=== PATIENT | male | born 1955 | race Caucasian/White ===

== ENCOUNTER 2025-06-25 07:49 | Outpatient (OUT) | payer MEDICARE, OTHER, SELFPAY ==
--- OUTSIDE RECORDS SUMMARY | 2025-06-25 07:58 | XMS_ITS | Clinical Summary ---
Author Organization [facility] Address [address] [place] [address] Phone Care Team Providers Care Development Spec Name Role Phone Fortino Grigsby DO Primary Care Provider [phone] Social History Tobacco UseTypesPacks/DayYears UsedDateSmoking Tobacco: Never AssessedSex and Gender InformationValueDate RecordedSex Assigned at BirthNot on fileLegal Sex Male07/18/2022 8:02 PM ESTGender IdentityNot on fileSexual OrientationNot on file Last Filed Vital Signs Vital SignReadingTime TakenCommentsBlood Jifukvpx477/8805 2:23 PM EDT Xwoba0099/18/2022 1:17 PM EDTTemperature--Respiratory Rate--Oxygen Saturation-- Inhaled Oxygen Concentration--Cqoavr06.8 kg (209 lb)01/07/2022 1:17 PM EDTHeight 177.8 cm (5' 10 )01/07/2022 1:17 PM EDTBody Mass Index29.9901/07/2022 1:17 PM EDT Plan of Treatment Not on file Care Teams Team MemberRelationshipSpecialtyStart DateEnd Date Fortino Grigsby DO [address] [place] [address] PCP - General01/07/22
--- OUTSIDE RECORDS SUMMARY | 2025-06-25 07:58 | XMS_ITS | Clinical Summary ---
Author Organization [facility] Address [address] [place] [address] Care Team Providers Care Window Shade Cutter Name Role Phone Fortino Grigsby DO Primary Care Provider [phone] Allergies Active AllergyReactionsCriticalityNoted YcikHngbrciyHlmgclmrOulvtcp98/31/2023 Medications MedicationSigDispense QuantityRefillsLast FilledStart DateEnd DateStatus Multiple Vitamin (multivitamin) tablet Take 1 tablet by mouth DailyActive montelukast (Singulair) 10 MG tablet Indications:Chronic coughTAKE 1 TABLET BY MOUTH AT BEDTIME 30 tablet 4Active cetirizine (ZyrTEC) 10 MG tablet Indications:Chronic coughTAKE 1 TABLET BY MOUTH DAILY NEEDED 30 tablet 4Active bisoprolol-hydroCHLOROthiazide (Ziac) 5-6.25 MG tablet Indications:Essential hypertensionTake 1 tablet by mouth Daily 90 tablet 5Active simvastatin (Zocor) 40 MG tablet Indications:Hyperlipidemia, unspecified hyperlipidemia typeTake 1 tablet (40 mg) by mouth at bedtime 90 tablet 5Active triamcinolone (Kenalog) 0.1 % cream Indications:RashApply topically 2 (two) times a day as needed for rash 30 g 5Active Active Problems ProblemNoted DateDiagnosed DateDisc disease, degenerative, lumbar or lumbosacral 02/15/2024isplacement of lumbar intervertebral disc with radiculopathy 02/15/2024Intractable back pain02/15/2024ight foot drop02/15/2024Sciatica 02/15/2024Screening for colorectal afqbhg8302/15/2024Spinal xdgqwged31/25/2024 Essential lfkqdweqproh36/31/9484Ixoscxqsllafho04/31/2023aroxysmal atrial cszikigkdjkc26/31/2023 Immunizations ImmunizationAdministration DatesNext DueModerna SARS-CoV-2 Qdiepphiawh33/13/2021 Pfizer [place] Cap SARS-CoV-2 Krppeofwuxq81/18/6724TKVL-COD-6 (COVID-19) vaccine, mRNA, spike protein, LNP, PF, mohan-sucrose, 30 mcg/0.3 mL07/18/2023 Family History Medical HistoryRelationNameCommentsNo Known ProblemsBrother2 brothers, healthyNo Known ProblemsDaughter2 daughters, healthyHeart diseaseFatherHypertensionFather HypertensionMotherBreast cancerSister 1Colon cancerSister 2No Known ProblemsSon RelationNameStatusCommentsBrotherDaughterAliveFatherDeceasedMotherDeceasedSister 1Sister 2AliveSonAlive Social History Tobacco UseTypesPacks/DayYears UsedDateSmoking Tobacco: NeverPassive Smoke Exposure: NeverSmokeless Tobacco: Never Tobacco Cessation:Counseling Given: Yes Alcohol UseStandard Drinks/WeekCommentsYes0 (1 standard drink = 0.6 oz pure alcohol)PHQ-2AnswerDate RecordedPatient Health Questionnaire-2 Laeqr619 Sex and Gender InformationValueDate RecordedSex Assigned at BirthNot on file Legal BheJpfq8211/04/2022 7:02 PM EDTGender IdentityNot on fileSexual Orientation Not on file Last Filed Vital Signs Vital SignReadingTime TakenCommentsBlood Qruahosc930/72002/05/2025 8:59 AM EDT Ylmol029702/05/2025 8:59 AM KEVJldhxgcylxq12.6 ??C (97.9 ??F)02/05/2025 8:59 AM EDTRespiratory Rate--Oxygen Itrqsefufh34%02/05/2025 8:59 AM EDTInhaled Oxygen Concentration--Kakucl64.3 kg (210 lb)02/05/2025 8:59 AM CVWKfyqfo743.8 cm (5' 10 )02/05/2025 8:59 AM EDTBody Mass Index30.13002/05/2025 8:59 AM EDT Plan of Treatment DateTypeDepartmentCare Team (Latest Contact Info)Gxvrilybakw16/04/2025 8:30 AM ESTOffice Visit [facility] [address] [place] [address] Luh Murcia, FINANCE CONSULTANT-EXPERIMENTAL [employer] F[employer]ICATOR [address] [place] [address] Health MaintenanceDue DateLast DoneCommentsCT Xgmxuaaiiego13/08/1957FIT-DNA 1956FIT1955FOBT1955 6971Lybkkqtdlrwwh26/08/1957DTaP/Tdap/Td Vaccines (1 - Tdap)1963Pneumococcal Vaccine: 65+ Years (1 of 1 - PCV) 2006COVID-19 Vaccine ( season)5109/17/2022, 02/07/2022, 07/05/2021, Additional history existsInfluenza Vaccine (#1)5Colonoscopy , 08/01/2019Colorectal Cancer Wgkwtlfls72/08/2033HIB VaccinesAged OutNo longer eligible based on patient's age to complete this topic HPV VaccinesAged OutNo longer eligible based on patient's age to complete this topicHepatitis A VaccinesAged OutNo longer eligible based on patient's age to complete this topicHepatitis B VaccinesAged OutNo longer eligible based on patient's age to complete this topicIPV VaccinesAged OutNo longer eligible based on patient's age to complete this topicMeningococcal B VaccineAged OutNo longer eligible based on patient's age to complete this topicMeningococcal VaccineAged OutNo longer eligible based on patient's age to complete this topicRotavirus VaccinesAged OutNo longer eligible based on patient's age to complete this topic Procedures Procedure NamePriorityDate/TimeAssociated DiagnosisCommentsCOLONOSCOPY WCUGNKEEIYWcrazsc56/08/2023 1:00 PM EDTfrom Last 3 Months or Most Recently Relevant to Health Maintenance Results * COLONOSCOPY DIAGNOSTIC (01/28/2023 1:00 PM EDT)Anatomical RegionLaterality ModalityRadiographic Imaging Narrative Authorizing ProviderResult TypeResult StatusParolando Grigsby DOIMG XR PROCEDURES Final Result from Last 3 Months or Most Recently Relevant to Health Maintenance Insurance Care Teams Team MemberRelationshipSpecialtyStart DateEnd Date Fortino Grigsby, [address] [place] [address] PCP - GeneralFamily Medicine01/07/23
--- NOTE | 2025-06-25 07:59 | ECG_ITS ---
[facility] Test Date: 2025-06-25 Pat Name: DONAL YEE Department: Room: - Gender: Male Water Purifier: : 1955 Requested By: AJIT PUENTE Order Number: [id number] Reading MD: ELMO QUESADA M.D. Measurements Intervals [place] Rate: 60 P: 38 [place]: 168 QRS: 17 QRSD: 104 T: 21 QT: 384 QTc: 384 Interpretive Statements SINUS RHYTHM Normal ECG No previous ECG available for comparison Electronically Signed On 06-25-2025 12:47:16 EST by ELMO QUESADA M.D.
--- NOTE | 2025-06-25 08:48 | PM.PRESUREVA ---
History of Present Illness History of Present Illness Chief complaint: left hydrocele Narrative: Patient presents for presurgical testing. The patient reports a history of a left sided hydrocele that has been ongoing and worsening for the past 6 months. The patient denies any urinary complaints. No dysuria, hematuria, urinary retention, fever, nausea, vomiting, or any other complaints. Review of Systems ROS Narrative REVIEW OF SYSTEMS: Negative except as stated in HPI, ten or more systems reviewed. Constitutional: No fever, chills, weakness ENT: No sore throat or epistaxis Cardiovascular: No edema, chest pain, palpitations, or activity intolerance Respiratory: No shortness of breath, cough, or wheezing Musculoskeletal: No joint pain or swelling Gastrointestinal: No abdominal pain, constipation, diarrhea, or vomiting Genitourinary: No dysuria or hematuria Neurological: No numbness, tingling, weakness, or headache Psychiatric: No mood changes PFSH PFS Medical History (Updated 06/25/25 @ 08:30 by Kath Proctor NP) Shoulder pain ?M25.519 - Pain in unspecified shoulder (ICD-10) Arthritis ?M19.90 - Unspecified osteoarthritis, unspecified site (ICD-10) COVID-19 ?U07.1 - COVID-19 (ICD-10) Headache ?R51.9 - Headache, unspecified (ICD-10) Hydrocele ?N43.3 - Hydrocele, unspecified (ICD-10) High cholesterol ?E78.00 - Pure hypercholesterolemia, unspecified (ICD-10) Hypertension ?I10 - Essential (primary) hypertension (ICD-10) Atrial fibrillation ?I48.91 - Unspecified atrial fibrillation (ICD-10) Surgical History (Updated 06/25/25 @ 08:30 by Kath Proctor NP) History of lumbosacral spine surgery ?Z98.890 - Other specified postprocedural states (ICD-10) History of colonoscopy ?Z98.890 - Other specified postprocedural states (ICD-10) Family History (Updated 06/25/25 @ 08:30 by Kath Proctor NP) Other Congestive heart failure Family history of breast cancer Family history of heart disease Family history of hypertension Rectal cancer Social History (Updated 06/25/25 @ 08:23 by Kath Proctor NP) Within the past year, how often did you have a drink containing alcohol: never Score interpretation: A score less than 4 is consistent with normal alcohol consumption. Smoking status: Never smoker Non-prescribed substance use: denies use Previous occupational history: Retired, [employer] Highest level of school completed/degree received: high school graduate Meds Home Medications and Allergies Home Medications ?Medication ?Instructions ?Recorded ?Confirmed ?Type bisoprolol 5 1 tab PO DAILY 06/25/25 06/25/25 History mg-hydrochlorothiazide 6.25 mg tablet simvastatin 40 mg tablet 40 mg PO QPM 06/25/25 06/25/25 History Allergies Allergy/AdvReac Type Severity Reaction Status Date / Time No Known Drug Allergies Allergy Verified 06/25/25 08:21 Exam Narrative Exam Narrative: Constitutional: Awake, alert, comfortable, well-appearing, nontoxic, interactive, vital signs as charted Head: Normocephalic, atraumatic Neck: Supple, normal appearance, normal range of motion, no meningeal signs, no lymphadenopathy Respiratory: No respiratory distress, breath sounds clear Cardiovascular: Regular rate and rhythm, strong and regular heart tones Abdomen: Nontender, normal bowel sounds, soft, no CVA tenderness Musculoskeletal: Normal gait, no swelling or edema Skin: No rashes or induration, no lesions, only visible skin inspected Neuro: No neurological deficits, normal sensation Psychiatric: Oriented ?3, normal affect Assessment and Plan Assessment and Plan (1) Hydrocele: Plan Left hydrocelectomy scheduled with Dr. Daugherty July 10, 2025.
[2025-06-25 09:04] LABS: Anion Gap 12.2; Blood Urea Nitrogen 16.0 mg/dL (7.0-18.0); Calcium 9.2 mg/dL (8.5-10.1); Carbon Dioxide 28.8 mmol/L (21.0-32.0); Chloride 101 mmol/L (98-107); Estimated GFR (African America >60 (>=60 mL/min/1.73m^2); Estimated GFR (Non-African Ame 53 (>=60 mL/min/1.73m^2); Glucose 109 mg/dL (74-106); Potassium 4.0 mmol/L (3.5-5.1); Sodium 138 mmol/L (136-145)
[2025-06-25 09:12] LABS: Hematocrit 51.8 % (42.0-54.0); Hemoglobin 17.5 g/dL (14.0-18.0); Immature Granulocytes Abs Auto 0.05 10^3/uL (0.00-0.03); Immature Granulocytes Pct Auto 0.6 % (0.0-0.5); Lymphocytes Absolute Auto 2.6 10^3/uL (1.2-3.8); Mean Corpuscular HGB Conc 33.8 g/dL (29.9-35.2); Mean Corpuscular Hemoglobin 31.3 pg (25.9-34.0); Mean Corpuscular Volume 92.7 fL (80.0-94.0); Platelet Count 318 10^3/uL (150-450); Red Blood Count 5.59 10^6/uL (4.70-6.10); White Blood Count 8.6 10^3/uL (4.0-11.0)
[2025-06-25 09:19] LABS: INR 1.01; Partial Thromboplastin Time 26.8 sec (22.3-36.2); Prothrombin Time 10.7 sec (9.0-11.6)
== END 2025-06-25 07:50 | disposition home or self-care (01) ==
LOC: PST 07:55
PROVIDERS: PCP Family Medicine; Visit Provider Urology
DX: Z01.810 Encounter for preprocedural cardiovascular examination (principal); Z01.812 Encounter for preprocedural laboratory examination; Z01.818 Encounter for other preprocedural examination; N43.3 Hydrocele, unspecified
CPT/HCPCS: 80048; 85025; 85610; 85730; 93005; G0463

== ENCOUNTER 2025-07-10 13:04 | Day surgery (SDC) | payer OTHER, MEDICARE, SELFPAY ==
[2025-06-25 08:41] VITALS: BP 135/88; PULSE 69; TEMP 36.4; O2SAT 95; BMI 29.4
[2025-07-10] VITALS (12 sets, daily range): BP systolic 143–180; BP diastolic 86–106; PULSE 65–82; TEMP 36.3–36.8; O2SAT 90–98; BMI 29.3
[2025-07-10] MEDS: CEFAZOLIN SODIUM 2 GM/50 ML D5W PREMIX IV (15:24)
[2025-07-10] MEDS: MINERAL OIL LIGHT STERILE 10 ML VIAL TOPICAL (16:01)
[2025-07-10] MEDS: BACITRACIN OINTMENT 28.4 GM TUBE 1 APPLIC TOPICAL (16:47)
--- NOTE | 2025-07-10 16:50 | P.URON_ITS ---
Urology Surgery Operative Note Operative Note Procedure Date: 07/10/25 Time Out Performed: yes Pre-op Diagnosis: Large left hydrocele Post-op Diagnosis: same as pre-op Procedures performed: 1. Left hydrocelectomy Anesthesia: General-LMA Primary Surgeon: Cheko Daugherty Complications: None Estimated blood loss (mL): 5 Findings: Large left hydrocele crossing the midline Specimens: Left hydrocele sac Drains: None Indications for Procedures: This gentleman has a large left hydrocele which is bothersome for him. He is desirous for hydrocelectomy. He has signed an informed consent after risks were explained. Detailed description of Procedure: The patient was brought to the operating room and placed on the operating room table in the supine position. SCDs were placed on his lower extremities and turned on and functioning during the entire case. Timeout was done by all parties in the room. We all agreed upon the patient's identification and the planned procedures for this patient. General anesthesia was then administered via LMA. The genitalia were sterilely prepped and draped in the usual fashion. I started by making a left hemiscrotal transverse incision with the 15 blade scalpel. Sharp dissection was carried down through the scrotal layers with the needle tip Bovie cautery until I arrived at 8/10 blue fluid-filled left hemiscrotum. I then sharply dissected the left hemiscrotal contents free of the attachments to the scrotum and then this was delivered out of the incision. I bluntly dissected the hemiscrotal contents free and to the spermatic cord free using a gauze and finger dissection. At this time I then cut into the hydrocele sac sharply and aspirated 300 cc of straw-colored fluid. The edges of the sac were tagged with hemostats after the sac was opened and the cephalad and caudad directions. The redundant sac was then excised circumferentially with the Bovie cautery. The remaining edges of the hydrocele sac were fully coagulated for perfect hemostasis. The testicle and epididymis were intact and viable. We then coagulated some dark toes bleeders with the Bovie cautery. We then irrigated the left hemiscrotum and the testicle and epididymis. Tiny bleeders were then coagulated with the needle tip Bovie cautery. Once we had perfect hemostasis we then placed the testicle and epididymis in the proper anatomic orientation into the left hemiscrotum. We then closed the dartos layer with 3-0 Vicryl in a running fashion. The scrotal skin was closed with 4-0 Vicryl in a running fashion. Bacitracin ointment was placed over the incision. Fluffs were placed and a scrotal support was applied. The patient was then transferred to a [facility] bed and wheeled to PACU in stable condition.
--- NOTE | 2025-07-10 18:32 | PC.NURSE ---
1800: pt denies the need to void at this time.
--- NOTE | 2025-07-10 18:48 | PC.NURSE ---
1845:pt ambulates to bathroom,voids without difficulty.
--- NOTE | 2025-07-10 19:14 | PC.NURSE ---
1900:pt voices nausea improved after medication was given.
== END 2025-07-10 19:15 | disposition home or self-care (01) ==
LOC: SURGOUT 13:09
PROVIDERS: PCP Family Medicine; Visit Provider Urology
PROC: (CPT 920; principal; 2025-07-10 14:15)
DX: N43.3 Hydrocele, unspecified (principal); E78.5 Hyperlipidemia, unspecified; I10 Essential (primary) hypertension; I48.91 Unspecified atrial fibrillation
CPT/HCPCS: 55040; 36415; 88304; J0131; J0690; J1100; J1171; J1453; J1885; J2250; J2704